=== PATIENT | female | born 1940 | race Caucasian/White ===

== ENCOUNTER → 2021-10-08 | Outpatient (CLI) | payer OTHER ==
[~2021-10-08] MED LIST: B-121000 MCG PO; BENTYL 10MG CAP10 MG PO; BROVANA15 MCG/2 M NEB; CHILDREN'S ASPI81 MG PO; CLOPIDOGREL75 MG PO; COMBIVENT RESPIM4 GM INH; CRESTOR40 MG PO; CYMBALTA 30 MG30 MG PO; DICLOFENAC TOP; ENDOCET 5-3251 EACH PO; FERROUS SULFAT325 M2 PO; FLOVENT 220.1 GM/INH; ISOSORBIDE MONO60 MG PO; KETOCONAZOLE120 ML TOP; LASIX 40 MG TAB40 MG PO; LISINOPRIL10 MG PO; LOMOTIL 2.5-0.1 EACH PO; LONHALA MA25 MCG/11 NEB; NEURONTIN 100100 MG PO; NITROSTAT 0.40.4 MG SL; NORVASC5 MG PO; OMEPRAZOLE20 MG PO; ONDANSETRON HCL4 MG PO; POTASSIUM CHLO20 ME1 PO; PREDNISONE 10 M10 MG PO; PROAIR DIGIHAL90 MCG INH; PROTONIX 40 MG40 M1 PO; PULMICORT0.5 MG/2 M NEB; RANEXA500 MG PO; SINGULAIR10 MG PO; SPIRIVA18 MCG NEB; VIBRAMYCIN 100100 MG PO
[2021-10-08 12:10] LABS: HEMOGLOBIN 12.3 gm/dl (12.3-15.3); RED BLOOD COUNT 4.18 M/UL (4.00-5.10); WHITE BLOOD COUNT 14.4 K/UL (4.5-11.0)
[2021-10-08 12:31] LABS: BUN/CREATININE RATIO 28 (0-10)
== END ==
LOC: OPSV2 10:00
PROVIDERS: Anesthesiology
DX: Z01.818 Encounter for other preprocedural examination (principal); I45.10 Unspecified right bundle-branch block; R94.31 Abnormal electrocardiogram [ECG] [EKG]
CPT/HCPCS: 36415; 80048; 85025; 93005